=== PATIENT | female | born 1940 | race African-American/Black ===

== ENCOUNTER 2021-05-29 18:21 | Inpatient (IN) | payer OTHER ==
[~2021-05-29] VITALS: Ht 172.7 cm; Wt 95.7 kg
--- NOTE | ~2021-05-29 | EMS ---
[facility] [address] [place] [address] EMS Patient Care Report Name: FRANCISCA BLAIR Room #: REG BRENT Gibbs#: [id number] Admission: 05/29/21 Attend Phys: Discharge: Date of : 42 Report #: [id number] THIS REPORT FOR: //name// Report Transmitted: 05/29/2021 21:07 EMS Care Summary [place], [place]/[facility] Incident [id number] @ 05/29/2021 17:52 Incident Location [address] Patient DWIGHT BLAIR Female, 80 Years 1940 Patient Address [address] [place] [address] Chief Complaint altered LOC Disposition Transported No Lights/[place] Dispatch Reason Unconscious/Fainting Transported To [facility] Narrative [place] staff reports pt is normally a&ox4. since this morning she has had an alerted LOC. the night nurse reported that the pt was possibly hallucinating, and now the day nurse states that all day the pt is conscious but does not respond verbally and "jerks her arms around". pt has fever of 99.6 axillary. pt opens eyes to name and says "what" when her name is called out. she does not appear to track movement. her pupils are unequal and staff is not sure if that is normal for her. she is not normally ambulatory. she moves upper ext equally. pt to be eval at [facility]. pt to cot, tx as listed in flow chart. transport w/o change. report to staff rm 12. [facility] [address] [place] [address] EMS Patient Care Report Name: FRANCISCA BLAIR Room #: REG Bernie#: [id number] Admission: 05/29/21 Attend Phys: Discharge: Date of : 42 Report #: [id number] Initial Vitals @18:08P: 90,R: 20,BP: 145/80,GCS: 11,Temp: 99.6F,Glucose: 290,SpO2: 96,Revised Trauma: 11, Assessments @18:00MENTAL:Confused,SKIN:Hot,HEENT:Eyes: Left Pupil: 2-mm,Eyes: Right Pupil: 3-mm,LUNG SOUNDS:ABDOMEN:PELVIS//GI:EXTREMITIES:PULSE:Radial: 2+ Normal,NEURO:Slurred Speech, Impression Altered Mental Status Procedures @18:00 ALS Assessment Response: Unchanged @18:02 Stretcher Response: Unchanged @18:08 3-Lead ECG Response: Unchanged @18:10 IV Therapy - Saline Lock 10cc (22 ga) Site: Hand-Left Response: UnchangedSucceeded Timeline 17:51,Call Received 17:51,Dispatch Notified 17:52,Dispatched 17:53,En Route 17:57,On Scene 18:00,At Patient 18:00,ALS Assessment,Response: Unchanged 18:02,Stretcher,Response: Unchanged 18:08,3-Lead ECG,Response: Unchanged 18:08,BP: 145/80 M,PULSE: 90,RR: 20 R,SPO2: 96 Ox,ETCO2: ,B,PAIN: ,GCS: 11, 18:10,IV Therapy - Saline Lock 10cc 22 ga Site: Hand-Left,Response: UnchangedSucceeded, 18:11,Depart Scene 18:13,At Destination 18:31,Call Closed Disclaimer v1.1 Copyright 2020 [place] This EMS Care Summary contains data elements from the applicable legal record (which may be displayed differently). It is designed to provide pertinent information for the following purposes: continuity of care, clinical quality, and state data reporting. The complete legal record is available to ED staff and administrators of the receiving hospital in [employer] Patient Tracker. All data is provided "as is."
--- NOTE | ~2021-05-29 | EEG ---
[facility] [place] [address] [place] [address] ELECTROENCEPHALOGRAM Name: FRANCISCA BLAIR Room #: 216-P [facility] IN M.R.#: [id number] Admission: 05/29/21 Attend Phys: Tad Carrasco MD Discharge: Date of : 42 Report #: [id number] THIS REPORT FOR: //name// DATE OF SERVICE: 06/01/2021 This patient is being evaluated for altered mental status. EEG was done by placing the electrode by standard 10-20 system of electrode placement. The patient's EEG is slow and poorly formed. It appeared to be about 6 Hz and 20 microvolts. It appeared to be slower on other occasion and the patient may be sleeping that time. Photic stimulation is unremarkable. IMPRESSION: This is an abnormal EEG because it is disorganized and poorly formed. That typically happens with encephalopathy or dementia, but is a nonspecific finding and can occur with effect of psychotropic medication, drowsiness, etc. Clinical correlation is recommended. By: [id number] Enrique Araiza MD /nt
[2021-05-29 18:23] VITALS: BP 109/49
[2021-05-29 19:05] LABS: ABSOLUTE NEUTROPHILS 7.8 thou/uL (1.4-8.2); BASOPHILS 0.5 % (0.0-2.0); EOSINOPHILS 0.2 % (0.0-3.0); HEMATOCRIT 34.6 % (37.0-47.0); LYMPHOCYTES 8.7 % (24.0-44.0); MCHC 31.8 g/dL (28.0-37.0); MCV 84.7 fL (80.0-100.0); MONOCYTES 12.3 % (1.0-8.0); PLATELET COUNT 513 thou/uL (150-400); POLYS 78.3 % (36.0-66.0); RBC 4.08 mil/uL (4.20-5.00); RDW 15.8 % (10.5-14.5); WBC 9.9 thou/uL (4.0-11.0)
[2021-05-29 19:15] LABS: URINE BILIRUBIN NEGATIVE (Negative); URINE BLOOD NEGATIVE (Negative); URINE CLARITY CLEAR; URINE COLOR YELLOW; URINE GLUCOSE-RANDOM* NEGATIVE (Negative); URINE KETONES TRACE (Negative); URINE LEUKOCYTES-REFLEX NEGATIVE (Negative); URINE NITRITE-REFLEX NEGATIVE (Negative); URINE PROTEIN (DIPSTICK) NEGATIVE (Negative); URINE SPECIFIC GRAVITY >= 1.030 (1.005-1.035); URINE UROBILINOGEN 0.2 E.U./dl (0.2-1.0)
[2021-05-29 19:17] LABS: CALCIUM 9.3 mg/dL (8.5-10.1); CREATININE 1.1 mg/dL (0.6-1.0); POTASSIUM 3.6 mmol/L (3.5-5.1)
[2021-05-29 19:29] LABS: APTT 33.6 Seconds (24.5-32.8); INR 1.24; PROTIME 13.4 Seconds (10.5-12.1)
[2021-05-29 19:32] LABS: TOTAL BILIRUBIN 0.4 mg/dL (0.2-1.0); TOTAL PROTEIN 7.6 g/dL (6.4-8.2)
[2021-05-30] VITALS (7 sets, daily range): BP systolic 99–147; BP diastolic 52–80
[2021-05-30] MEDS ORDERED: OXYCODONE HCL5 MG PO (00:19)
[2021-05-30] MEDS ORDERED: SENNA PLUS TAB1 EACH PO (00:20)
[2021-05-30] MEDS ORDERED: PROMETHAZINE12.5 M1 PO (00:20)
[2021-05-30] MEDS ORDERED: TYLENOL325 MG PO (00:22)
[2021-05-30] MEDS ORDERED: TRIANEX430 GM TOP (00:22)
[2021-05-30] MEDS ORDERED: NORVASC5 MG PO (00:23)
[2021-05-30] MEDS ORDERED: ZYPREXA 10 MG T10 MG PO (00:23)
[2021-05-30] MEDS ORDERED: BISACODYL10 MG RECTAL (00:24)
[2021-05-30] MEDS ORDERED: MIRALAX119 GM PO (00:25)
[2021-05-30] MEDS ORDERED: VITAMIN D325 MC3 PO (00:25)
[2021-05-30] MEDS ORDERED: GERI-LANTA LIQ355 M1 PO (00:25)
[2021-05-30] MEDS ORDERED: LISINOPRIL20 MG PO (00:26)
[2021-05-30] MEDS ORDERED: LOVENOX40 MG/0.4 SUBQ (00:26)
[2021-05-30] MEDS ORDERED: MILK OF MA400 MG/5 M PO (00:26)
[2021-05-30] MEDS ORDERED: NAMENDA 5 MG TAB5 M1 PO (00:27)
[2021-05-30] MEDS ORDERED: ZOFRAN4 MG PO (00:27)
[2021-05-30] MEDS ORDERED: NORCO7.5 PO (00:27)
--- NOTE | 2021-05-30 03:30 | NUR ---
PATIENT ADMITTED TO UNIT FROM ER APPROXIMATELY 115 VIA STRETCHER. SHE IS LETHARGIC AND SLEEPY. HAS DIFFICULTY STAYING AWAKE WHEN ASKING HER QUESTIONS. SHE DOES OPEN HER EYES WHEN SPOKEN TO. SHE IS ORIENTED TO PERSON ONLY. SHE EXHIBITS SOME ANXIETY. NO OPEN SKIN NOTED. PATIENT RESPIRATIONS ARE REGULAR AND UNLABORED. SHE IS TRANSFERRED FROM STRETCHER TO THE BED. SHE STATES THAT HER LEGS ARE SORE WHEN MOVING HER UP IN BED. SHE IS UNABLE TO COMPLETE FULL ASSESSMENT AND IS UNABLE TO SIGN HER CONSENTS. PATIENT DOES HAVE A ESCOBAR IN PLACE. VSS AT THIS TIME. SHE IS 97% ON RA. NO SIGNS OR SYMPTOMS OF DISTRESS NOTED. WILL CONTINUE TO MONITOR FOR CHANGES IN PATIENT STATUS.
[2021-05-30 05:57] LABS: HEMATOCRIT 31.9 % (37.0-47.0); MCH 26.8 pg (26.0-34.0); MCHC 31.2 g/dL (28.0-37.0); MCV 85.8 fL (80.0-100.0); RBC 3.72 mil/uL (4.20-5.00); RDW 15.7 % (10.5-14.5); WBC 9.8 thou/uL (4.0-11.0)
[2021-05-30 06:09] LABS: CALCIUM 8.5 mg/dL (8.5-10.1); CREATININE 0.8 mg/dL (0.6-1.0); POTASSIUM 3.3 mmol/L (3.5-5.1)
--- NOTE | 2021-05-30 11:30 | EKG ---
[place] [address] [facility] [place] [address] ELECTROCARDIOGRAM REPORT Name: FRANCISCA BLAIR Room #: 216-P ADM IN M.R.#: [id number] Admission: 05/29/21 Attend Phys: Tad Carrasco MD Discharge: Date of : 42 Report #: [id number] [facility] ED Test Date: 2021-05-29 Test Time: 21:53:32 Pat Name: FRANCISCA BLAIR Department: Room: 216 Gender: F Coil Cleaner: rosanna pedersen : 1940 Requested By: Royer Sierra Order Number: [id number] MD: Jimmy Fung Measurements Intervals Homer Rate: 105 P: 56 DE: 149 QRS: -49 QRSD: 96 T: 76 QT: 367 QTc: 486 Interpretive Statements Sinus tachycardia Atrial premature complex Left anterior fascicular block Abnormal R-wave progression, early transition Baseline wander in lead(s) V3 No previous ECG available for comparison Electronically Signed On 05-30-2021 11:30:29 CDT by Jimmy Fung [email or web address] <ELECTRONICALLY SIGNED> By: Jimmy Fung MD, [facility] 05/30/21 1130 52 52 Jimmy Fung MD, [facility] /EPI
--- NOTE | 2021-05-30 13:21 | NUR ---
PT UNABLE TO ANSWER MRI SCREENING QUESTIONS DUE TO AMS. ATTEMPTED TO CALL DAUGHTER, NO ETHYLBENZENE CONVERTER HELPER, ASKED TO CALL BACK.
--- NOTE | 2021-05-30 16:08 | NUR ---
PT SOMMULENT TODAY. DOES AWAKEN WITH COMBINATION OF TOUCH AND VERBAL STIMULI. SHE IS HAVING ACTIVE VISUAL HALLUCINATIONS. PT NEEDED TO HAVE STAT CT DUE TO PUPILLARY RESPONSE CHANGE. RIGHT PUPIL LARGER AND FIXED THAN LEFT. CT HEAD WAS NEGATIVE. PT AFEBRILE, ADEQUATE UOP, NO BM, STRICT NPO BESIDES PILLS AND SIPS. FLU A/B SWABBED AND SENT TO LAB. MRI ORDERED BUT UNABLE TO OBTAIN DUE TO PT BEING POOR HISTORIAN AND NO FAMILY PRESSENCE TO ANSWER MRI CHECKLIST QUESTIONS. FAMILY CALLED AND LEFT MESSAGE FOR. PT HAS BEEN THOUROUGHLY UPDATED AND EDUCATED ON PT CONDITION AND POC. PT SLOWLY PROGRESSING TOWARDS POC.
[2021-05-30 21:46] LABS: MAGNESIUM 1.9 mg/dL (1.8-2.4)
--- NOTE | 2021-05-31 04:00 | NUR ---
PT SLEPT MOST OF THE NOC.GETS IN MUCH PAIN WHEN BEING REPOSITIONED. TYLENOL GIVEN X 1. ESCOBAR IN PLACE. ROOM AIR, NO DISTRESS.
--- NOTE | 2021-05-31 05:01 | HC ---
[facility] [place] [address] [place] [address] CONSULTATION Name: FRANCISCA BLAIR Room #: 216-P [facility] IN .R.#: [id number] Admission: 05/29/21 Attend Phys: Tad Carrasco MD Discharge: Date of : 42 Report #: [id number] THIS REPORT FOR: cc: FAM - No family physician/PCP FAM - No family physician/PCP Scooby Mcdonald MD ~ DATE OF SERVICE: 05/30/2021 INFECTIOUS DISEASE CONSULTATION ATTENDING PHYSICIAN: Dr. Carrasco. REASON FOR EVALUATION: Febrile illness with marked encephalopathy and sepsis. HISTORY OF PRESENT ILLNESS: Chart reviewed. The patient examined. This is a 80-year-old woman with extensive medical history including prediabetes as well as schizophrenia with bipolar disorder and some dementia, resides in a facility. She has chronic pain syndrome as well who was noted to have worsening encephalopathy, low-grade temperature elevation. She was referred to the Emergency Room where she was found to be febrile to an excess of 101 degrees, really cannot get any sort of history from her. At this point, she is difficult to arouse, some sonorous breathing, although she is not requiring supplemental oxygen. Chest x-ray showed bibasilar densities. Urinalysis was fairly unremarkable. Lactic acid 1.4. Coronavirus testing was negative. It is notable she had a previous diagnosis of COVID-19 infection with pneumonitis. Procalcitonin less than 0.05. CT abdomen and pelvis, recent pelvic trauma with multiple fractures, previous cholecystectomy. Cultures have been collected from the blood, they are pending. She was empirically started on combination therapy with cefepime, Levaquin. ALLERGIES: LISTED TO PENICILLINS, ERYTHROMYCIN. CURRENT MEDICATIONS: Include levofloxacin, olanzapine, memantine, cholecalciferol, amlodipine, enoxaparin, cefepime, insulin sliding scale, albuterol. PAST MEDICAL HISTORY: As described above, dementia, diabetes, hypertension, schizophrenia. SOCIAL HISTORY: She is disabled. Otherwise, unremarkable. PHYSICAL EXAMINATION: GENERAL: She appears chronically ill, undernourished. HEENT: Eyes are closed. She is unable to arouse. She does move spontaneously with stimuli. VITAL SIGNS: T-max 101.2, more recently 96.3, pulse 76, respirations 16, blood [address] [address] CONSULTATION Name: FRANCISCA BLAIR Room #: 216-[facility] IN .R.#: [id number] Admission: 05/29/21 Attend Phys: Tad Carrasco MD Discharge: Date of : 42 Report #: [id number] pressure 146/75. SKIN: Warm, dry, no rashes. HEENT: Normocephalic. Extraocular muscles intact. NECK: Supple. LUNGS: Diminished breath sounds. HEART: Regular. I do not appreciate a murmur. ABDOMEN: Soft, no apparent peritoneal signs. GENITOURINARY AND RECTAL: Deferred. LABORATORY DATA: Recent CBC: White count of 9.8, H and H 10.0 and 31.9, platelets of 442. Electrolytes: Sodium 144, potassium 3.3, chloride 109, bicarbonate 26, anion gap of 9, BUN and creatinine 19 and 0.8. Lipase of 183. CT abdomen and pelvis noted above. CT of the head, no acute intracranial process. Procalcitonin less than 0.05. CRP of 116.4. Lactic acid 1.4. ASSESSMENT AND PLAN: Febrile illness with a profound encephalopathy, could be early sepsis. We will continue empiric antimicrobial therapy. Certainly, the differential is quite extensive, including noninfectious causes. We will await blood cultures. At this point, based on imaging and clinical picture, it is not evident that she has got a focus of pyogenic infection. We will see how she responds in the next 24-48 hours. <ELECTRONICALLY SIGNED> By: Scooby Mcdonald MD 05/31/21 0501 0623 0856 Scooby Mcdonald MD /nt
[2021-05-31 05:03] VITALS: BP 146/85
[2021-05-31 06:09] LABS: ABSOLUTE NEUTROPHILS 5.2 thou/uL (1.4-8.2); BASOPHILS 0.6 % (0.0-2.0); EOSINOPHILS 2.5 % (0.0-3.0); HEMATOCRIT 31.8 % (37.0-47.0); HEMOGLOBIN 10.2 gm/dL (12.0-15.0); LYMPHOCYTES 19.2 % (24.0-44.0); MCH 27.2 pg (26.0-34.0); MCV 84.9 fL (80.0-100.0); MONOCYTES 10.6 % (1.0-8.0); PLATELET COUNT 473 thou/uL (150-400); POLYS 67.1 % (36.0-66.0); RBC 3.75 mil/uL (4.20-5.00); RDW 16.2 % (10.5-14.5); WBC 7.8 thou/uL (4.0-11.0)
[2021-05-31 06:26] LABS: ALBUMIN 2.1 g/dL (3.4-5.0); CALCIUM 8.6 mg/dL (8.5-10.1); CREATININE 0.9 mg/dL (0.6-1.0); MAGNESIUM 1.8 mg/dL (1.8-2.4); PHOSPHORUS 2.5 mg/dL (2.5-4.9); POTASSIUM 3.3 mmol/L (3.5-5.1); TOTAL BILIRUBIN 0.3 mg/dL (0.2-1.0)
[2021-05-31 07:08] LABS: GLYCOHEMOGLOBIN (HGB A1C) 6.3 % (4.8-5.6)
[2021-05-31 07:43] VITALS: BP 145/100; BP 152/88
--- NOTE | 2021-05-31 10:21 | HC ---
[facility] [place] [address] [place] [address] CONSULTATION Name: FRANCISCA BLAIR Room #: 216-P [facility] IN .R.#: [id number] Admission: 05/29/21 Attend Phys: Tad Carrasco MD Discharge: Date of : 42 Report #: [id number] THIS REPORT FOR: cc: FAM - No family physician/PCP FAM - No family physician/PCP Nicol Flynn DO ~ NEUROLOGY CONSULT HISTORY OF PRESENT ILLNESS: The Neurology service was consulted for altered mental status. The patient unfortunately is unable to provide any history and I tried to call her daughter, but there was no answer and I did not leave a message. According to the information from the ambulance run, the residential staff reported that the patient is normally alert and oriented x 4 since the morning. That morning, she had altered loss of consciousness. The patient was possibly hallucinating. The patient was not responding verbally and was jerking her arms around. The patient had a temperature of 99.6 axillary. The patient was seen in the Emergency Room. This information states that the patient has a history of dementia and schizophrenia. Apparently, the patient's last known well was the morning of admission. PAST MEDICAL HISTORY: Hypertension, hyperlipidemia, diabetes, chronic kidney disease, gastroesophageal reflux, schizophrenia, bipolar disorder, dementia with behaviors, sacral and pubic fractures, chronic pain syndrome and history of COVID-19. PAST SURGICAL HISTORY: Unknown. MEDICATIONS: Maxipime 2 grams q. 12 hours, vitamin D 2000 units daily, enoxaparin 40 mg daily, levofloxacin 750 mg q. 24 hours, memantine 5 mg b.i.d., Norvasc 5 mg daily, olanzapine 10 mg b.i.d., senna 2 tablets b.i.d. ALLERGIES: PENICILLIN, ERYTHROMYCIN, PORK. VITAL SIGNS: Temperature 36.6, pulse rate 57, respiratory rate 16, blood pressure 99/52, bedside pulse oximetry 100% on room air. LABORATORY DATA: Hematology: White blood cell count 9.8, hemoglobin 10, hematocrit 31.9, MCV 85.8, platelet count 442,000. INR 1.24. Urinalysis: Trace ketones. Chemistry: Sodium 144, potassium 3.3, chloride 109, carbon dioxide 26, BUN 19, creatinine 0.8, GFR 84, glucose 95. Lactic acid 1.5, calcium 8.5, total bilirubin 0.4, AST 71, ALT 22, alkaline phosphatase 254. Creatine kinase 1287. C-reactive protein 116. BNP 942. Total protein 7.6, albumin 3, lipase 183. Procalcitonin less than 0.05. Serology: COVID negative. [address] [address] CONSULTATION Name: FRANCISCA BLAIR Room #: 216-P [facility] IN M.R.#: [id number] Admission: 05/29/21 Attend Phys: Tad Carrasco MD Discharge: Date of : 42 Report #: [id number] IMAGING: Chest x-ray shows mild increased bibasilar density suggesting atelectasis versus pneumonitis. CT of the abdomen and pelvis demonstrate recent pelvic trauma with multiple fractures, previous lumbar fusion, previous cholecystectomy, the possibility of a distal noncalcified stone or pancreatic head mass producing obstruction, tiny left lower lobe nodules measuring less than 5 mm in size, most likely benign, huge right upper pole cyst of the kidney, which could represent a nonobstructing stone or adjacent phlebolith. NEUROLOGIC EXAMINATION: The patient is not oriented to place or time. When she speaks, she is sometimes difficult to understand as to what she is trying to communicate. Motor exam demonstrates her able to lift both of her arms above her head. She can just lift each leg off the bed. Reflexes are trace. Plantar responses are both flexor bilaterally. She could not cooperate with [id number]. Gait was not tested. IMPRESSION AND PLAN: More information is needed from the patient's daughter as to the patient's actual underlying cognitive ability. The information received from the ambulance run states the patient is alert and oriented x 4. However, it also states in the ER documentation, the patient has dementia and a history and physical states the patient has dementia with behaviors. I have ordered a B12 and TSH to make sure the treatable causes of dementia have been looked for. The patient is also on memantine 5 mg b.i.d., which should be increased to 5 mg in the morning and 10 mg at night for 2 weeks, then 10 mg twice a day. I also wonder why the patient has not been started on a medication like donepezil. Typically, memantine is not used by itself. The patient has elevated liver functions and a possible mass at the head of the pancreas. This is going to require further investigation. I have also ordered an ammonia level to make sure there is not a component of hepatic encephalopathy. An MRI of the head will also be ordered. Given that the patient does have behaviors, it may be best to consult Psychiatry, which I understand would see the patient on Tuesday. I see no imaging of the cervical spine and as several abnormalities were seen with regard to the lumbar spine, I am going to at least order a CT scan of the cervical spine to be done. [address] [address] CONSULTATION Name: FRANCISCA BLAIR Room #: 216-P ADM IN M.R.#: [id number] Admission: 05/29/21 Attend Phys: Tad Carrasco MD Discharge: Date of : 42 Report #: [id number] I thank you for your kind referral of the patient. <ELECTRONICALLY SIGNED> By: Nicol Flynn DO 05/31/21 1021 1207 1413 Nicol Flynn DO /nt
[2021-05-31 11:35] VITALS: BP 151/87
[2021-05-31 15:44] VITALS: BP 147/77
--- NOTE | 2021-05-31 19:34 | NUR ---
PT HAS DEMENTIA WITH NEUROLOGY CONSULTED. NEUROLOGY DOES NOT WANT STRONG PAIN MEDS BECAUSE THIS PT IS IN HER 70S WITH DEMENTIA. THERE IS A CONCERN FOR A DECLINE IN HEALTH FROM TOO MUCH PAIN MEDS BUT HER FAMILY MEMBER IS AT THE BEDSIDE INSISTING FOR STRONGER PAIN CONTROL. THIS RN EXPLAINED THE CONCERN OF NEUROLOGY; HOWEVER, THE FAMILY MEMBER REPORTS THAT SHE IS IN TOO MUCH PAIN. FOLLOWING THAT CONVERSATION DR BRAND IS UPDATED BY THIS RN OF THE FAMILY MEMBER CONCERN. NEW ORDERS FOR OXYCODONE AND HYDROCONDE ARE PLACED BY THE HOSPITALIST.
[2021-05-31 20:00] VITALS: BP 142/70
[2021-05-31 20:15] VITALS: BP 142/70
[2021-06-01 03:31] LABS: CALCIUM 8.5 mg/dL (8.5-10.1); CREATININE 0.9 mg/dL (0.6-1.0); MAGNESIUM 1.8 mg/dL (1.8-2.4); PHOSPHORUS 2.9 mg/dL (2.6-4.7); POTASSIUM 3.4 mmol/L (3.5-5.1)
[2021-06-01 04:03] LABS: ABSOLUTE NEUTROPHILS 4.8 thou/uL (1.4-8.2); BASOPHILS 0.7 % (0.0-2.0); EOSINOPHILS 2.3 % (0.0-3.0); HEMATOCRIT 29.4 % (37.0-47.0); HEMOGLOBIN 9.5 gm/dL (12.0-15.0); LYMPHOCYTES 25.5 % (24.0-44.0); MCH 27.5 pg (26.0-34.0); MCHC 32.3 g/dL (28.0-37.0); MCV 85.3 fL (80.0-100.0); MONOCYTES 11.1 % (1.0-8.0); PLATELET COUNT 405 thou/uL (150-400); POLYS 60.4 % (36.0-66.0); RBC 3.45 mil/uL (4.20-5.00); RDW 15.8 % (10.5-14.5); WBC 7.9 thou/uL (4.0-11.0)
[2021-06-01 04:45] VITALS: BP 144/85
[2021-06-01 08:32] VITALS: BP 109/52
--- NOTE | 2021-06-01 14:25 | NUR ---
Met with patient who admits from [facility]. Patient admits with sepsis/AMS. patient is ltc resident at [facility]. Patient has guardian Adrianne Sultana [phone]. Sp with guardian alerted of admission. Updated RN and phys patient has a guardian. Called registration to update face sheet. Sp with [facility] and faxed clinical record for review. Casemgt following.
[2021-06-01 16:07] VITALS: BP 115/68
[2021-06-01 19:56] VITALS: BP 137/85
[2021-06-01 20:00] VITALS: BP 128/74; BP 137/85
[2021-06-02 01:06] LABS: GLYCOHEMOGLOBIN (HGB A1C) 6.3 % (4.8-5.6)
[2021-06-02 04:00] VITALS: BP 143/76
[2021-06-02 09:15] VITALS: BP 167/81
[2021-06-02 12:11] VITALS: BP 148/70
[2021-06-02 16:18] VITALS: BP 148/83
[2021-06-03 04:27] VITALS: BP 167/94
--- NOTE | 2021-06-03 04:33 | NUR ---
PT WAS AGITATED, CONFUSED AND UNCOOPERATIVE AT THE BEGINNING OF THE SHIFT. PT HAD PULLED OUT HER ESCOBAR IN THE DAY SHIFT AND DID NOT URINATE POST 6HR. WAITED UNTIL MIDNIGHT, ESCOBAR WAS REPLACED. MAX STRAIGHT CATH WAS MAX OF 300.
[2021-06-03 05:35] LABS: HEMATOCRIT 34.5 % (37.0-47.0); HEMOGLOBIN 11.1 gm/dL (12.0-15.0); MCH 27.4 pg (26.0-34.0); MCHC 32.2 g/dL (28.0-37.0); MCV 85.1 fL (80.0-100.0); RBC 4.06 mil/uL (4.20-5.00); RDW 15.9 % (10.5-14.5); WBC 8.5 thou/uL (4.0-11.0)
[2021-06-03 05:48] LABS: ALBUMIN 2.3 g/dL (3.4-5.0); CALCIUM 9.2 mg/dL (8.5-10.1); CREATININE 0.8 mg/dL (0.6-1.0); POTASSIUM 4.1 mmol/L (3.5-5.1); TOTAL BILIRUBIN 0.5 mg/dL (0.2-1.0); TOTAL PROTEIN 6.7 g/dL (6.4-8.2)
[2021-06-03 08:10] VITALS: BP 154/90
[2021-06-03 11:35] VITALS: BP 137/83
[2021-06-03 16:15] VITALS: BP 123/72
[2021-06-03 19:18] VITALS: BP 120/69
--- NOTE | 2021-06-03 19:56 | NUR ---
PT IS AXOX2; KNOWS SELF, AND KNOWS SHE IS IN THE HOSPITAL FOR HER HIP. VSS, AFEBRILE, SR ON THE MONITOR. PT PAIN MGMT ADJUSTED TO HAVE HYDROCODONE TO REDUCE CONFUSION. DR VALENZUELA CONSULTED. PT IS UNABLE TO TOLERATE MRI/CT. MRI CALLED TO DETERMINE IF MRI/CT CAN BE COMPLETED. POSS TESTING WOULD INVOLVE PT BEING SEDATED FOR ANY FURTHER IMAGING. POC IS TO CONTINUE PAIN MGMT; MONITOR BLOOD SUGARS. HIGH FALL PRECAUTIONS IN PLACE. NO CONCERNS AT THIS TIME.
[2021-06-04 04:25] VITALS: BP 128/75
[2021-06-04 08:54] VITALS: BP 125/57
--- NOTE | 2021-06-04 11:25 | NUR ---
Patient is rec skilled rehab at [facility]. Plan return to [facility] once stable. Updated facility. Patient to have MRI in am.
[2021-06-04 12:27] VITALS: BP 161/76
[2021-06-04 15:44] VITALS: BP 130/72
--- NOTE | 2021-06-04 16:10 | NUR ---
VAT CONSULTED FOR PIV. TO ROOM TO ASSESS AT 1540. EDUCATED PT ABOUT REASON FOR PIV (RN TOLD THIS RN SHE IS HAVING SURGERY.) PT WANTED TO KNOW ABOUT THIS SURGERY. COULD NOT FIND INFO REGARDING THIS, BUT SAW ORDERS FOR SEVERAL MRIS. PT ALLOWED THIS RN TO ASSESS LEFT FOREARM WITH US. MOVED TO RIGHT SIDE TO ASSESS, UNCOVERED HER ARM AND PT STATED "YOU AREN'T STICKING NO NEEDLE IN ME." DISCUSSED THAT SHE NEEDS PIV FOR MRI AND SHE SAID "I DON'T NEED NO MRI." LET FIDEL, RN KNOW THAT PT REFUSED.
--- NOTE | 2021-06-04 19:04 | NUR ---
ASSESSMNET CHARTED - MEDS PER SEP - LINDA SMALL AMOUNTS OF DIET AND FLUIDS. PT HAS BEEN RESTING IN BED THIS SHIFT. WAS TO HAVE MRI TODAY BUT THIS WAS CANCELLED UNTIL THE AM - PT TO BE NPO AFTER MIDNIGHT DUE TO ANAESTHESIA SHE WILL RECIEVE FOR TESTING. PT PULLED IV OUT REFUSED TO ALLOW IV THERAPY TO PLACE ANOTHER - DR VALENZUELA NOTIFIED. WILL ASK NIGHT STAFF TO ATTMEPT TO PLACE. NO CO''S AT THE PRESENT TIME.
[2021-06-04 20:15] VITALS: BP 101/67; BP 129/49
[2021-06-05] VITALS (9 sets, daily range): BP systolic 151–181; BP diastolic 78–89
--- NOTE | 2021-06-05 04:35 | NUR ---
ASSUMED PT CARE AT 1900, ALERT AND ORIENTED TO SELF, CONFUSED, NOT IMPULSIVE THIS SHIFT, C/O PAIN TO THE LLE WITH REPOSITIONING, PT GIVEN PRN PAIN MEDS WITH RELIEF, ASSESSMENTS CHARTED, PT AGITATED WITH TURNS STATING ITS PAIN FUL, PT TURNES TOLERATED, REMAINS NPO AFTER MIDNIGHT FOR MRI TODAY, WILL CONTINUE TO MONITOR PER POC
--- NOTE | 2021-06-05 17:19 | NUR ---
Patient from [facility] skilled if dc this weekend call Odell from [facility] . Inquire into fax number to fax orders. Chart is copied. [facility] to arrange transport. INFORM THE GUARDIAN OF DISCHARGE.
--- NOTE | 2021-06-05 18:29 | NUR ---
ASSESMENTS COMPLETED AND CHARTED, ALL MEDICATIONS GIVEN ON TIME. PATIENT ATE DINNER. PATIENT SITTING COMFORTABLY IN BED. COMPLETED MRI'S TODAY SUCESSFULLY.
[2021-06-06 04:00] VITALS: BP 152/93
[2021-06-06 04:15] VITALS: BP 152/93
--- NOTE | 2021-06-06 06:02 | NUR ---
PT ASSESSMENTS CHARTED, NO C/O PAIN, REFUSED TURNING THIS MORNING, REMAINS ALERT TO SELF, CALM AND NOT IMPULSIVE, VSS, ESCOBAR WITH YELLOW DRAINAGE, WILL CON'T TO MONITOR PER PPOC.
[2021-06-06 07:41] VITALS: BP 157/98
[2021-06-06 07:49] VITALS: BP 157/98
[2021-06-06] MEDS ORDERED: METHOCARBAMOL750 MG PO (10:44)
[2021-06-06] MEDS ORDERED: ALBUTEROL2.5 MG/0.5 INH (10:44)
[2021-06-06] MEDS ORDERED: CEFDINIR300 MG PO (10:44)
[2021-06-06] MEDS ORDERED: LIDOPATCH1 EACH TRANSDERM (10:44)
--- NOTE | 2021-06-06 11:03 | NUR ---
PT DISCHARGING TODAY TO [facility] FAXED DC ORDERS/SUMMARY RECEIVED CONFIRMATION. SPOKE WITH TIFFANI IN ADM AT [facility] AND SHE ARRANGED STRETCHER VAN FOR [phone] TODAY. NOTIFIED PT'S LEGAL GUARDIAN SHAN DOWNS OF DC AND FAXED DC ORDERS TO GUARDIAN ALSO NOTIFIED PT'S DAUGHTER. UNIT NOTIFIED AND CHART COPY PER US. RN TO CALL REPORT TO [phone].
--- NOTE | 2021-06-06 12:42 | NUR ---
PATIENT ASSESSMENTS CHARTED AND VITALS COMPELTED. ALL BELONGINGS ARE TOGETHER AND GIVEN TO TRANSPORT. PATIENT STILL CONFUSED TODAY STATING SHE WANTS TO GO HOME, GOING BACK TO [facility] WHERE SHE WAS BEFORE ADMISSION. PATIENT STABLE TO GO. PULLED ESCOBAR AND GOT URINE OUTPUT AND PULLED PATIENT'S IV.
[2021-06-08 21:06] LABS: SYPHILIS AB Non Reactive (Non Reactive)
== END 2021-06-06 13:00 | DRG 871 ==
LOC: ER 18:21 → 2N 22:59 → EROBS 22:59 → 2N 05-30 01:12
PROVIDERS: Emergency Medicine; Internal Medicine; Nurse Practitioner; Nurse Practitioner Family; Psychiatry & Neurology Neurology; Psychiatry & Neurology Neuromuscular Medicine; ADMIT Hospitalist; ATTEND Hospitalist
DX: A41.9 Sepsis, unspecified organism (principal); G92.8 Other toxic encephalopathy; M62.82 Rhabdomyolysis; N17.9 Acute kidney failure, unspecified; J96.11 Chronic respiratory failure with hypoxia; E46 Unspecified protein-calorie malnutrition; F02.81 Dementia in other diseases classified elsewhere, unspecified severity, with behavioral disturbance; Z20.822 Contact with and (suspected) exposure to COVID-19; E78.5 Hyperlipidemia, unspecified; E11.22 Type 2 diabetes mellitus with diabetic chronic kidney disease; K21.9 Gastro-esophageal reflux disease without esophagitis; G89.4 Chronic pain syndrome; F32.9 Major depressive disorder, single episode, unspecified; M19.90 Unspecified osteoarthritis, unspecified site; N18.30 Chronic kidney disease, stage 3 unspecified; K59.00 Constipation, unspecified; F17.210 Nicotine dependence, cigarettes, uncomplicated; D50.8 Other iron deficiency anemias; F41.9 Anxiety disorder, unspecified; I12.9 Hypertensive chronic kidney disease with stage 1 through stage 4 chronic kidney disease, or unspecified chronic kidney disease; E87.6 Hypokalemia; J44.9 Chronic obstructive pulmonary disease, unspecified; F25.9 Schizoaffective disorder, unspecified; E86.0 Dehydration; G30.9 Alzheimer's disease, unspecified; M48.02 Spinal stenosis, cervical region; K86.9 Disease of pancreas, unspecified; R41.0 Disorientation, unspecified; Z88.1 Allergy status to other antibiotic agents; Z88.0 Allergy status to penicillin; Z88.8 Allergy status to other drugs, medicaments and biological substances; Z87.81 Personal history of (healed) traumatic fracture; Z90.49 Acquired absence of other specified parts of digestive tract; Z90.710 Acquired absence of both cervix and uterus; Z86.16 Personal history of COVID-19; Z68.32 Body mass index [BMI] 32.0-32.9, adult; Z23 Encounter for immunization
CPT/HCPCS: 10081; 50010; 62110; 62900; 70005

== ENCOUNTER 2021-08-28 19:10 | Emergency (ER) | payer OTHER ==
[~2021-08-28] VITALS: Ht 154.9 cm; Wt 59.0 kg
--- NOTE | ~2021-08-28 | EMS ---
[facility] [address] [place] [address] EMS Patient Care Report Name: FRANCISCA BLAIR Room #: DEP BRENT Gibbs#: [id number] Admission: 08/28/21 Attend Phys: Discharge: 08/28/21 Date of : 44 Report #: [id number] THIS REPORT FOR: //name// Report Transmitted: 09/01/2021 12:50 EMS Care Summary [place], [place]/[facility] Incident [id number] @ 08/28/2021 18:37 Incident Location [address] [place], [place] [address]SHAMIR Wilburn Patient FRANCISCA BLAIR Female, 80 Years 1940 Patient Address [address] [place], [place] [address] [place] [address] Patient History Behavioral/Psychiatric Disorder,Hyperlipidemia,Gastro-Esophageal Reflux Disease (GERD),Bipolar II Disorder,Schizophrenia,Depression,Anxiety,Anemia,Sepsis,Hypotension,Hypokalemia, Patient Allergies Penicillin allergy,Erythromycin,Pork allergy, Patient Medications Albuterol, Cholecalciferol, Amlodipine, Bisacodyl, Lisinopril, Ondansetron, Chief Complaint nausea Disposition Transported No Lights/[place] Reason Abdominal Pain/Problems Transported To [facility] Narrative Initially dispatched for abdominal pain at [facility]. Upon EMS [facility] [address] [place] [address] EMS Patient Care Report Name: FRANCISCA BLAIR Room #: DEP ER Bernie#: [id number] Admission: 08/28/21 Attend Phys: Discharge: 08/28/21 Date of : 44 Report #: [id number] arrival patient was found sitting in a wheelchair in her room, anxious, showing no other obvious signs of distress, conscious and alert. Nurse on scene reported that the patient has chronic nausea. She stated that the patient was given her Ondansetron around 15:30 today and is only allowed to have it every six hours. Nurse reported that the patient began complaining of nausea around 17:00. When the nurse advised she had her afternoon dose and could not have anymore right now, the patient stated that she had not been given it. Nurse stated that the patient's daughter called 911 on behalf of the patient. Nurse stated that the patient is a alanis of the [facility] but could not reach the patient's guardian due to it being "after hours". She stated that if the patient wanted to go to the hospital, she was not able to stop her. Patient reported feeling nauseated and that the facility staff would not give her medication. She was assisted onto the stretcher, secured, and loaded into the ambulance. Patient was transported to [facility] without incident. Full report was given to RN prior to signing this document. Initial Vitals @18:56P: 94,R: 20,BP: 133/84,Pain: 0/10,GCS: 14,SpO2: 99,Revised Trauma: 12, Assessments @18:46MENTAL:Time Oriented,Person Oriented,Confused,Place Oriented,SKIN:No Abnormalities,HEENT:Head/Face: No Abnormalities,Eyes: No Abnormalities,Neck/Airway: No Abnormalities,LUNG SOUNDS:General: Nausea,Left Upper: No Abnormalities,Right Upper: No Abnormalities,Left Lower: No Abnormalities,Right Lower: No Abnormalities,ABDOMEN:General: Nausea,Left Upper: No Abnormalities,Right Upper: No Abnormalities,Left Lower: No Abnormalities,Right Lower: No Abnormalities,PELVIS//GI:EXTREMITIES:Left Arm: No Abnormalities,Right Arm: No Abnormalities,Left Leg: No Abnormalities,Right Leg: No Abnormalities,PULSE:NEURO:No Abnormalities, Impression Nausea Procedures @18:46 ALS Assessment Response: UnchangedSucceeded Timeline 18:34,Call Received 18:34,Dispatch Notified 18:37,Dispatched 18:37,En Route 18:44,On Scene 18:46,At Patient 18:46,ALS Assessment,Response: UnchangedSucceeded, 18:56,BP: 133/84 M,PULSE: 94,RR: 20 R,SPO2: 99 Ox,ETCO2: ,BG: ,PAIN: 0,GCS: 14, [address] [address] EMS Patient Care Report Name: FRANCISCA BLAIR Room #: DEP BRENT Gibbs#: [id number] Admission: 08/28/21 Attend Phys: Discharge: 08/28/21 Date of : 44 Report #: [id number] 19:00,Depart Scene 19:01,At Destination 19:17,Call Closed Disclaimer v1.1 Copyright 2021 [employer] This EMS Care Summary contains data elements from the applicable legal record (which may be displayed differently). It is designed to provide pertinent information for the following purposes: continuity of care, clinical quality, and state data reporting. The complete legal record is available to ED staff and administrators of the receiving hospital in [facility]'s Patient Tracker. All data is provided "as is."
[~2021-08-28 19:10] MED LIST: ALBUTEROL2.5 MG/0.5 INH; BISACODYL10 MG RECTAL; CEFDINIR300 MG PO; GERI-LANTA LIQ355 M1 PO; LIDOPATCH1 EACH TRANSDERM; LISINOPRIL20 MG PO; LOVENOX40 MG/0.4 SUBQ; METHOCARBAMOL750 MG PO; MILK OF MA400 MG/5 M PO; MIRALAX119 GM PO; NAMENDA 5 MG TAB5 M1 PO; NORCO7.5 PO; NORVASC5 MG PO; OXYCODONE HCL5 MG PO; PROMETHAZINE12.5 M1 PO; SENNA PLUS TAB1 EACH PO; TRIANEX430 GM TOP; TYLENOL325 MG PO; VITAMIN D325 MC3 PO; ZOFRAN4 MG PO; ZYPREXA 10 MG T10 MG PO
[2021-08-28 19:50] LABS: ABSOLUTE NEUTROPHILS 3.4 thou/uL (1.4-8.2); EOSINOPHILS 2.4 % (0.0-3.0); HEMATOCRIT 38.1 % (37.0-47.0); HEMOGLOBIN 12.2 gm/dL (12.0-15.0); MCH 27.2 pg (26.0-34.0); MCV 84.8 fL (80.0-100.0); MONOCYTES 7.7 % (1.0-8.0); PLATELET COUNT 280 thou/uL (150-400); POLYS 56.9 % (36.0-66.0); RBC 4.49 mil/uL (4.20-5.00); RDW 16.5 % (10.5-14.5)
[2021-08-28 19:59] LABS: CREATININE 0.9 mg/dL (0.6-1.0); POTASSIUM 3.3 mmol/L (3.5-5.1)
[2021-08-28 20:05] LABS: URINE BILIRUBIN NEGATIVE (Negative); URINE BLOOD NEGATIVE (Negative); URINE CLARITY CLEAR; URINE COLOR YELLOW; URINE GLUCOSE-RANDOM* NEGATIVE (Negative); URINE KETONES NEGATIVE (Negative); URINE LEUKOCYTES-REFLEX NEGATIVE (Negative); URINE NITRITE-REFLEX NEGATIVE (Negative); URINE PROTEIN (DIPSTICK) NEGATIVE (Negative); URINE UROBILINOGEN 0.2 E.U./dl (0.2-1.0)
[2021-08-28 20:10] LABS: MAGNESIUM 1.8 mg/dL (1.8-2.4); TOTAL BILIRUBIN 0.3 mg/dL (0.2-1.0); TOTAL PROTEIN 6.3 g/dL (6.4-8.2)
[2021-08-28 22:40] VITALS: BP 120/78
--- NOTE | 2021-08-31 07:56 | EKG ---
[facility] [place] [place] [address] ELECTROCARDIOGRAM REPORT Name: FRANCISCA BLAIR [id number] Admission: 08/28/21 Attend Phys: Discharge: 08/28/21 Date of : 44 Report #: [id number] [facility] ED Test Date: 2021-08-28 Test Time: 19:37:54 Pat Name: FRANCISCA BLAIR Department: Room: Gender: F [employer]: : 1940 Requested By: Shawna Smith Order Number: [id number] MD: Jimmy Fung Measurements Intervals [place] Rate: 79 P: 0 PA: 52 QRS: -36 QRSD: 113 T: 261 QT: 446 QTc: 512 Interpretive Statements Sinus rhythm Early R wave progression Leftward axis Nonspecific T abnormalities, diffuse leads Prolonged QT interval Compared to ECG 05/29/2021 21:53:32 Atrial premature complex(es) no longer present Electronically Signed On 08-31-2021 7:56:16 [employer] by Jimmy Fung [email or web address] <ELECTRONICALLY SIGNED> By: Jimmy Fung MD, [facility] 08/31/21 [id number] Jimmy Fung MD, [facility] /EPI
== END 2021-08-28 22:40 | disposition home or self-care (01) ==
LOC: ER 19:10
PROVIDERS: Emergency Medicine
DX: R11.2 Nausea with vomiting, unspecified (principal); F32.9 Major depressive disorder, single episode, unspecified; K21.9 Gastro-esophageal reflux disease without esophagitis; M19.90 Unspecified osteoarthritis, unspecified site; E78.5 Hyperlipidemia, unspecified; I12.9 Hypertensive chronic kidney disease with stage 1 through stage 4 chronic kidney disease, or unspecified chronic kidney disease; E11.22 Type 2 diabetes mellitus with diabetic chronic kidney disease; N18.30 Chronic kidney disease, stage 3 unspecified; Z90.710 Acquired absence of both cervix and uterus; Z86.16 Personal history of COVID-19; Z90.49 Acquired absence of other specified parts of digestive tract; Z98.890 Other specified postprocedural states; Z79.51 Long term (current) use of inhaled steroids; Z79.899 Other long term (current) drug therapy; Z79.891 Long term (current) use of opiate analgesic; Z88.1 Allergy status to other antibiotic agents; Z88.0 Allergy status to penicillin; Z91.014 Allergy to mammalian meats